=== PATIENT | male | born 1945 | race African-American/Black ===

== ENCOUNTER 2017-11-17 06:21 | Day surgery (SDC) | payer MEDICARE ==
[~2017-11-17 06:21] MED LIST: BUPIVACAINE HCL 0.75% INJ/PF (7.5 MG/1 ML) 10 ML SDV OD PRN; KETOROLAC TROMETHAMINE 0.45% 4 DROP/0.4 ML DROPERETTE OD PRN; LIDOCAINE 4% INJ/PF (40 MG/ML) 5 ML AMPUL OD PRN
[2017-11-17] MEDS ORDERED: MIDAZOLAM 2 MG/2 ML INJ ONE (06:31)
[2017-11-17] MEDS ORDERED: FENTANYL CITRATE INJ/PF 100 MCG/2 ML AMPUL ONE (06:31)
[2017-11-17] MEDS: TROPICAMIDE 1% OPH SOLN 3 ML OD PRN ×3 (06:49→07:10)
[2017-11-17] MEDS: CYCLOPENTOLATE 0.2%/PHENYLEPHRINE 1% OPH SOLN 2 ML OD PRN ×3 (06:49→07:10)
[2017-11-17] MEDS: BESIFLOXACIN HCL 0.6% OPH SUSP 5 ML BOTTLE OD PRN ×4 (06:50→07:58)
[2017-11-17] MEDS: TETRACAINE HCL 0.5% OPH SOLN 0.6 ML DROPERETTE OD PRN ×2 (06:51→07:25)
[2017-11-17] MEDS: LIDOCAINE 1% INJ-PF (10 MG/ML) 30 ML SDV ONE ×2 (07:46)
[2017-11-17] MEDS: CHONDR SU A NA/HYALUR INTRAOC KIT (SURGICARE) ONE ×2 (07:46)
[2017-11-17] MEDS: EPINEPHRINE INJ/PF 1 MG/1 ML AMPULE ONE ×2 (07:46)
--- NOTE | 2017-11-17 08:10 | [facility] DISCHARGE SUMMARY E ---
[facility] Discharge Summary NAME: MEHRAN MUSE AGE: 72Y ADMITTED: 11/17/2017 DISCHARGED: FINAL DIAGNOSIS: Cataract, right eye. HOSPITAL COURSE: The patient is an 72-year-old gentleman who underwent uneventful cataract extraction with intraocular lens implant right eye on 11/17/2017. He will be discharged to home. He is instructed to resume preoperative medications, to take Tylenol as needed for discomfort, to keep his eye shielded, to use Besivance, Durezol, and Ilevro at 3:00 p.m. and 8:00 p.m., and to follow up in my office in 1 day. DICTATING PHYSICIAN: RASHAWN SALCEDO M.D. [id number] [facility]#: [id number] ID: [id number] JOB#: [id number] ACCT: [id number] cc:RASHAWN SALCEDO M.D. >
--- NOTE | 2017-11-17 08:11 | [facility] OPERATIVE REPORT E ---
[facility] Operative Report NAME: MEHRAN MUSE AGE: 72Y DATE OF SURGERY: 11/17/2017 ROOM: PREOPERATIVE DIAGNOSIS: Cataract, right eye. POSTOPERATIVE DIAGNOSIS: Cataract, right eye. PROCEDURE PERFORMED: Phacoemulsification with posterior chamber intraocular lens, right eye. SURGEON: RASHAWN SALCEDO M.D. ANESTHESIA: Topical with MAC. INDICATIONS FOR SURGERY: Difficulty reading road signs and small print. Best corrected visual acuity 20/60. PROCEDURE: The patient was brought to the Operating Room and placed on the operative table. Following tetracaine drops, topical anesthesia was administered. This consisted of instrument wipe pledgets soaked in a solution of 4% Xylocaine mixed with 0.75% Marcaine in a 1:2 ratio. A 2 x 1 cm pledget was placed in the superior fornix. A 1 x 1 cm pledget was placed in the inferior fornix. The eye was patched shut for 5 minutes. The patch was removed. The eye was sterilely prepped and draped in the usual manner. Lid speculum was placed in the eye. The pledgets were removed. 4-0 black silk sutures were placed around the superior and the inferior rectus muscles to be used as traction. A conjunctival peritomy was made at the 10 o'clock position. Hemostasis was obtained with bipolar cautery. A posterior limbal groove was created using a crescent knife and dissected anteriorly towards the cornea. A sharp point blade was used to create a paracentesis site at the 2 o'clock position. A 2.4 mm keratome was used to enter the anterior chamber through the groove. Viscoelastic was injected into the anterior chamber. An anterior capsulotomy was performed using Utrata forceps in a capsulorrhexis fashion. Hydrodissection and hydrodelineation were performed. Phacoemulsification was performed in [id number] technique. A total of 47 seconds phaco time was used. Following this, the I/A unit was used to remove residual cortex. Viscoelastic was injected into the capsular bag. Intraocular lens model SN60WF, 20.0 diopters, serial number [id number] was placed in the capsular bag. The I/A unit was used to remove residual viscoelastic. The wound was seen to be watertight under high and low pressure, and no sutures were placed. The intraocular lens was well centered. The pressure was adjusted in the eye to normal pressure. The 4-0 black silk sutures and lid speculum were removed. The eye was shielded after Besivance drops were placed. The patient tolerated the procedure well and was sent to the recovery room in good condition. DICTATING PHYSICIAN: RASHAWN SALCEDO M.D. [id number] PHY#: [id number] ID: [id number] JOB#: [id number] ACCT: [id number] cc:RASHAWN SALCEDO M.D. >
== END 2017-11-17 08:40 | disposition home or self-care (01) ==
LOC: SC 06:21
PROVIDERS: ATTEND Ophthalmology
DX: H25.813 Combined forms of age-related cataract, bilateral (principal); I10 Essential (primary) hypertension; M10.9 Gout, unspecified; Z87.891 Personal history of nicotine dependence; Z79.899 Other long term (current) drug therapy
CPT/HCPCS: 66984; V2632; J2250; J3490 ×4; A9270; J0171; J3010; 142

== ENCOUNTER 2017-12-15 09:30 | Day surgery (SDC) | payer MEDICARE ==
[~2017-12-15 09:30] MED LIST changes: -BUPIVACAINE HCL 0.75% INJ/PF (7.5 MG/1 ML) 10 ML SDV OD PRN; +BUPIVACAINE HCL 0.75% INJ/PF (7.5 MG/1 ML) 10 ML SDV OS PRN; +CHONDR SU A NA/HYALUR INTRAOC KIT (SURGICARE) ONE; +EPINEPHRINE INJ/PF 1 MG/1 ML AMPULE ONE; -KETOROLAC TROMETHAMINE 0.45% 4 DROP/0.4 ML DROPERETTE OD PRN; +KETOROLAC TROMETHAMINE 0.45% 4 DROP/0.4 ML DROPERETTE OS PRN; -LIDOCAINE 4% INJ/PF (40 MG/ML) 5 ML AMPUL OD PRN; +LIDOCAINE 4% INJ/PF (40 MG/ML) 5 ML AMPUL OS PRN
[2017-12-15] MEDS: CYCLOPENTOLATE 0.2%/PHENYLEPHRINE 1% OPH SOLN 2 ML OS PRN ×3 (10:30→10:54)
[2017-12-15] MEDS: TROPICAMIDE 1% OPH SOLN 3 ML OS PRN ×3 (10:30→10:54)
[2017-12-15] MEDS: BESIFLOXACIN HCL 0.6% OPH SUSP 5 ML BOTTLE OS PRN ×4 (10:31→11:45)
[2017-12-15] MEDS: TETRACAINE HCL 0.5% OPH SOLN 0.6 ML DROPERETTE OS PRN ×2 (10:32→11:05)
[2017-12-15] MEDS ORDERED: FENTANYL CITRATE INJ/PF 100 MCG/2 ML AMPUL ONE (10:51)
[2017-12-15] MEDS ORDERED: MIDAZOLAM 2 MG/2 ML INJ ONE (10:51)
--- NOTE | 2017-12-15 12:00 | [facility] OPERATIVE REPORT E ---
[facility] Operative Report NAME: MEHRAN MUSE AGE: 72Y DATE OF SURGERY: 12/15/2017 ROOM: PREOPERATIVE DIAGNOSIS: Cataract, left eye. POSTOPERATIVE DIAGNOSIS: Cataract, left eye. PROCEDURE PERFORMED: Phacoemulsification with posterior chamber intraocular lens, left eye. SURGEON: RASHAWN SALCEOD M.D. ANESTHESIA: Topical with MAC. INDICATIONS FOR SURGERY: Difficulty driving. BEST CORRECTED VISUAL ACUITY: 20/50. DESCRIPTION OF PROCEDURE: The patient was brought to the operating room and placed on the operative table. Following tetracaine drops, topical anesthesia was administered. This consisted of instrument wipe pledgets soaked in a solution of 4% Xylocaine mixed with 0.75% Marcaine in a 1:2 ratio. A 2 x 1 cm pledget was placed in the superior fornix. A 1 x 1 cm pledget was placed in the inferior fornix. The eye was patched shut for 5 minutes. The patch was removed. The eye was sterilely prepped and draped in the usual manner. Lid speculum was placed in the eye. The pledgets were removed, 4-0 black silk sutures were placed around the superior and the inferior rectus muscles to be used as traction. A conjunctival peritomy was made at the 10 o'clock position. Hemostasis was obtained with bipolar cautery. A posterior limbal groove was created using a crescent knife and dissected anteriorly towards the cornea. A sharp point blade was used to create a paracentesis site at the 2 o'clock position. A 2.4 mm keratome was used to enter the anterior chamber through the groove. Viscoelastic was injected into the anterior chamber. An anterior capsulotomy was performed using Utrata forceps in a capsulorrhexis fashion. Hydrodissection and hydrodelineation were performed. Phacoemulsification was performed in [id number] technique. Total phaco time, 6.74 CDE. Following this, the I/A unit was used to remove residual cortex. Viscoelastic was injected into the capsular bag. Intraocular lens Model SN60WF, 20.0 diopters, serial number [id number] was placed in the capsular bag. The I/A unit was used to remove residual viscoelastic. The wound was seen to be watertight under high and low pressure, and no sutures were placed. The intraocular lens was well centered. The pressure was adjusted in the eye to normal pressure. The 4-0 black silk sutures and lid speculum were removed. The eye was shielded after Besivance drops were placed. The patient tolerated the procedure well and was sent to the recovery room in good condition. DICTATING PHYSICIAN: RASHAWN SALCEDO M.D. [id number] PHY#: [id number] ID: [id number] JOB#: [id number] ACCT: [id number] cc:RASHAWN SALCEDO M.D. >
--- NOTE | 2017-12-15 12:00 | [facility]ARE DISCHARGE SUMMARY E ---
[facility] Discharge Summary NAME: MEHRAN MUSE AGE: 72Y ADMITTED: 12/15/2017 DISCHARGED: 12/15/2017 HOSPITAL COURSE: The patient is a 72-year-old gentleman who underwent uneventful cataract extraction with intraocular lens implant, left eye, on 12/15/2017. He will be discharged to home. He was instructed to resume preoperative medications, to take Tylenol as needed for discomfort, to keep his eye shielded, to use Prolensa, Durezol, and Vigamox at 3:00 p.m. and 8:00 p.m., and to follow up in my office in 1 day. DICTATING PHYSICIAN: RASHAWN SALCEDO M.D. [id number] PHY#: [id number] ID: [id number] JOB#: [id number] ACCT: [id number] cc:RASHAWN SALCEDO M.D. >
[2017-12-15] MEDS ORDERED: LIDOCAINE 1% INJ-PF (10 MG/ML) 30 ML SDV ONE (12:17)
--- NOTE | 2017-12-15 22:14 | EKG REPORT ---
SEVERITY:- ABNORMAL ECG - SINUS RHYTHM VENTRICULAR BIGEMINY FIRST DEGREE AV BLOCK LEFT AXIS DEVIATION : Confirmed by: Hilary Mills 15-Dec-2017 22:14:17
== END 2017-12-15 11:46 | disposition home or self-care (01) ==
LOC: SC 09:30
PROVIDERS: ATTEND Ophthalmology
DX: H25.812 Combined forms of age-related cataract, left eye (principal); Z96.1 Presence of intraocular lens; I10 Essential (primary) hypertension; M10.9 Gout, unspecified; I49.9 Cardiac arrhythmia, unspecified; Z79.899 Other long term (current) drug therapy
CPT/HCPCS: 66984; 93005; 93010; V2632; J2250; J3490 ×4; A9270; J0171; J3010; 142

== ENCOUNTER 2019-01-18 02:57 | Emergency (ER) | payer MEDICARE ==
[2019-01-18] MEDS ORDERED: NORMAL SALINE 1000 ML 1,000 ML IV ONE (03:21)
[2019-01-18] MEDS ORDERED: ACETAMINOPHEN 325 MG TABLET PO ONE (03:46)
--- NOTE | 2019-01-18 03:46 | ER Document Report ---
ED GI/ - General Chief Complaint: Nausea/Vomiting Stated Complaint: VOMITING Time Seen by Provider: 01/18/19 03:11 Primary Care Provider: YUVAL PENNINGTON MD [Primary Care Provider] - Follow up as needed Mode of Arrival: Ambulatory Information source: Patient Notes: Patient is a 73-year-old male presented to the emergency department chief complaint of nausea, sweats, decreased appetite and abdominal discomfort. He reports he was diagnosed with urinary tract infection yesterday. He states he was told to come to the emergency department if he worsens in any way. Patient is currently taking Cipro. Patient denies any known fevers. He denies any vomiting. He does report some diarrhea. TRAVEL OUTSIDE OF THE [place] IN LAST 30 DAYS: No - Related Data Allergies/Adverse Reactions: No Known Allergies Allergy (Unverified 11/10/17 14:14) Past Medical History - General Information source: Patient - Social History Smoking Status: Never Smoker Frequency of alcohol use: None Drug Abuse: None Family History: Reviewed & Not Pertinent - Past Medical History Cardiac Medical History: Reports: Hx Hypertension Denies: Hx Heart Attack Pulmonary Medical History: Denies: Hx Asthma Neurological Medical History: Denies: Hx Cerebrovascular Accident, Hx Seizures GI Medical History: Reports: Hx Hiatal Hernia - HERNIA REPAIR. Denies: Hx Hepatitis, Hx Ulcer Infectious Medical History: Denies: Hx Hepatitis Past Surgical History: Denies: Hx Open Heart Surgery, Hx Pacemaker Review of Systems - Review of Systems Constitutional: Chills EENT: No symptoms reported Cardiovascular: No symptoms reported Respiratory: No symptoms reported Gastrointestinal: Abdominal pain, Diarrhea, Nausea Genitourinary: No symptoms reported Male Genitourinary: No symptoms reported Musculoskeletal: No symptoms reported Skin: No symptoms reported Hematologic/Lymphatic: No symptoms reported Neurological/Psychological: No symptoms reported Physical Exam - Vital signs Vitals: Temp Pulse Resp BP Pulse Ox 98.9 F 98 22 H 133/71 H 99 01/18/19 02:58 01/18/19 02:58 01/18/19 02:58 01/18/19 02:58 01/18/19 02:58 - Notes Notes: PHYSICAL EXAMINATION: GENERAL: Well-appearing, well-nourished and in no acute distress. HEAD: Atraumatic, normocephalic. EYES: Pupils equal round and reactive to light, extraocular movements intact, sclera anicteric, conjunctiva are normal. ENT: Nares patent, oropharynx clear without exudates. Moist mucous membranes. NECK: Normal range of motion, supple without lymphadenopathy LUNGS: Breath sounds clear to auscultation bilaterally and equal. No wheezes rales or rhonchi. HEART: Regular rate and rhythm without murmurs ABDOMEN: Soft, nontender, nondistended abdomen. No guarding, no rebound. No masses appreciated. Musculoskeletal: Normal range of motion, no pitting or edema. No cyanosis. NEUROLOGICAL: Cranial nerves grossly intact. Normal speech, normal gait. Normal sensory, motor exams PSYCH: Normal mood, normal affect. SKIN: Warm, Dry, normal turgor, no rashes or lesions noted. Course - Re-evaluation Re-evalutation: Abdomen/Pelvis CT 01/18/19 05:29 IMPRESSION: Minimal fullness of the left renal collecting system. No clear obstructing lesion. Abdomen/Pelvis CT 01/18/19 05:29 IMPRESSION: Minimal fullness of the left renal collecting system. No clear obstructing lesion. Laboratory 01/18/19 01/18/19 01/18/19 02:57 02:57 03:30 WBC 10.7 H RBC 5.11 Hgb 11.8 L Hct 36.4 L MCV 71 L MCH 23.2 L MCHC 32.5 RDW 17.0 H Plt Count 99 L Lymph % (Auto) 7.2 L Tama % (Auto) 8.9 Eos % (Auto) 0.0 Baso % (Auto) 0.3 Absolute Neuts (auto) 8.9 H Absolute Lymphs (auto) 0.8 Absolute Monos (auto) 1.0 Absolute Eos (auto) 0.0 Absolute Basos (auto) 0.0 Seg Neutrophils % 83.6 H Hypersegmented Neuts Cancelled Smudge Cells Cancelled Toxic Granulation Cancelled Toxic Vacuolation Cancelled Dohle Bodies Cancelled Ralph Rods Cancelled WBC Morphology Comment Cancelled Clumped Platelets Cancelled Large Platelets Cancelled Giant Platelets Cancelled Platelet Comment Cancelled Polychromasia Cancelled Hypochromasia Cancelled Poikilocytosis Cancelled Basophilic Stippling Cancelled Anisocytosis Cancelled Microcytosis Cancelled Macrocytosis Cancelled Spherocytes Cancelled Pappenheimer Bodies Cancelled Sickle Cells Cancelled Target Cells Cancelled Tear Drop Cells Cancelled Ovalocytes Cancelled Stomatocytes Cancelled Helmet Cells Cancelled [place] Bodies Cancelled Maikel Cells Cancelled Acanthocytes (Spur) Cancelled Rouleaux Cancelled Schistocytes Cancelled RBC Morph Comment Cancelled Sodium 133.0 L Potassium 3.3 L Chloride 99 Carbon Dioxide 23 Anion Gap 11 BUN 45 H Creatinine 1.66 H Est GFR ( Amer) 49 L Est GFR (MDRD) Non-Af 41 L Glucose 137 H Calcium 9.7 Total Bilirubin 1.1 Direct Bilirubin 0.6 H Neonat Total Bilirubin Not Reportable Neonat Direct Bilirubin Not Reportable Neonat Indirect Bili Not Reportable AST 85 H ALT 65 Alkaline Phosphatase 93 Total Protein 6.4 Albumin 3.5 Lipase 203.5 Urine Color YELLOW Urine Appearance CLOUDY Urine pH 5.0 Ur Specific [place] 1.015 Urine Protein 100 H Urine Glucose (UA) NEGATIVE Urine Ketones NEGATIVE Urine Blood LARGE H Urine Nitrite POSITIVE H Urine Bilirubin NEGATIVE Urine Urobilinogen NEGATIVE Ur Leukocyte Esterase LARGE H Urine WBC (Auto) >182 Urine RBC (Auto) 7 Urine Bacteria (Auto) TRACE Urine WBC Clumps MOD Squamous Epi Cells Auto 1 Amorphous Sediment Auto TRACE Urine Mucus (Auto) RARE Urine Ascorbic Acid NEGATIVE Patient appears well non-toxic. Patient denies any abdominal pain while in the emergency department. Urinalysis consistent with urinary tract infection. He was given 1g ceftriaxone and will be discharged home with strict ED return precautions. - Vital Signs Vital signs: Temp Pulse Resp BP Pulse Ox 99.1 F 85 15 135/83 H 94 01/18/19 07:06 01/18/19 07:06 01/18/19 07:06 01/18/19 07:06 01/18/19 07:06 - Laboratory Result Diagrams: 01/18/19 02:57 01/18/19 02:57 Laboratory results interpreted by me: 01/18/19 01/18/19 01/18/19 02:57 02:57 03:30 WBC 10.7 H Hgb 11.8 L Hct 36.4 L MCV 71 L MCH 23.2 L RDW 17.0 H Plt Count 99 L Lymph % (Auto) 7.2 L Absolute Neuts (auto) 8.9 H Seg Neutrophils % 83.6 H Sodium 133.0 L Potassium 3.3 L BUN 45 H Creatinine 1.66 H Est GFR ( Amer) 49 L Est GFR (MDRD) Non-Af 41 L Glucose 137 H Direct Bilirubin 0.6 H AST 85 H Urine Protein 100 H Urine Blood LARGE H Urine Nitrite POSITIVE H Ur Leukocyte Esterase LARGE H Discharge - Discharge Clinical Impression: Urinary tract infection Qualifiers: Urinary tract infection type: site unspecified Hematuria presence: with hematuria Qualified Code(s): N39.0 - Urinary tract infection, site not specified Condition: Stable Disposition: HOME, SELF-CARE Additional Instructions: Your urine shows findings consistent with a urinary tract infection. Please take all the antibiotics that were prescribed by the urgent care as directed even if your symptoms have improved. Take ibuprofen 600 mg every 6 hours. Use the narcotic pain medication for severe pain only. Please follow-up with your primary care physician as needed. Return to emergency room if you develop fever >101F, persistent vomiting, become lethargic, have severe pain in your sides, or any other symptoms that are concerning to you. Prescriptions: Hydrocodone Bit/Acetaminophen [Hydrocodon-Acetaminophen 5-325] 1 each PO Q4H #10 tablet Ondansetron [Zofran Odt 4 mg Tablet] 1 - 2 tab PO Q4H PRN #15 tab.rapdis PRN Reason: For Nausea/Vomiting Referrals: YUVAL PENNINGTON MD [Primary Care Provider] - Follow up as needed
[2019-01-18 03:52] LABS: AMORPHOUS SEDIMENT,URINE TRACE /HPF; APPEARANCE,URINE CLOUDY; BILIRUBIN,URINE NEGATIVE (NEGATIVE); COLOR,URINE YELLOW; GLUCOSE, URINE NEGATIVE (NEGATIVE); KETONES,URINE NEGATIVE (NEGATIVE); LEUKOCYTE ESTERASE,URINE LARGE (NEGATIVE); NITRITE,URINE POSITIVE (NEGATIVE); PROTEIN,URINE 100 mg/dL (NEGATIVE); URINE SPECIFIC GRAVITY 1.015; UROBILINOGEN,URINE NEGATIVE mg/dL (<2.0)
[2019-01-18 03:56] LABS: ABSOLUTE LYMPHOCYTES (AUTO) 0.8 10^3/uL (0.5-4.7); ABSOLUTE NEUT (AUTO) 8.9 10^3/uL (1.7-8.2); BASOPHILS % (AUTO) 0.3 % (0-2); HEMATOCRIT 36.4 % (37.9-51.0); HEMOGLOBIN 11.8 g/dL (13.5-17.0); LYMPHOCYTES % (AUTO) 7.2 % (13-45); MEAN CORPUSCULAR HEMOGLOBIN 23.2 pg (27.0-33.4); MEAN CORPUSCULAR HGB CONC 32.5 g/dL (32.0-36.0); MEAN CORPUSCULAR VOLUME 71 fl (80-97); MONOCYTES % (AUTO) 8.9 % (3-13); RED BLOOD COUNT 5.11 10^6/uL (4.35-5.55); SEGMENTED NEUTROPHILS % (AUTO) 83.6 % (42-78); TOTAL CELLS COUNTED % (AUTO) 100 %; WHITE BLOOD COUNT 10.7 10^3/uL (4.0-10.5)
[2019-01-18 04:08] LABS: ALBUMIN 3.5 g/dL (3.5-5.0); ALKALINE PHOSPHATASE 93 U/L (38-126); ANION GAP 11 (5-19); ASPARTATE AMINO TRANSFERASE 85 U/L (17-59); BILIRUBIN,DIRECT 0.6 mg/dL (0.0-0.4); BILIRUBIN,TOTAL 1.1 mg/dL (0.2-1.3); BLOOD UREA NITROGEN 45 mg/dL (7-20); CALCIUM 9.7 mg/dL (8.4-10.2); CARBON DIOXIDE 23 mmol/L (22-30); CHLORIDE 99 mmol/L (98-107); GLUCOSE 137 mg/dL (75-110); POTASSIUM 3.3 mmol/L (3.6-5.0); TOTAL PROTEIN 6.4 g/dL (6.3-8.2)
[2019-01-18 04:11] LABS: PLATELET COUNT 99 10^3/uL (150-450)
--- NOTE | 2019-01-18 06:14 | RADIOLOGY REPORT (SQ) ---
CLINICAL HISTORY: UTI, bilateral flank pain COMPARISON: None. TECHNIQUE: CT ABDOMEN PELVIS WITHOUT IV CONTRAST on 01/18/2019 5:29 AM CDT This exam was performed according to our departmental dose-optimization program, which includes automated exposure control, adjustment of the mA and/or kV according to patient size and/or use of iterative reconstruction technique. FINDINGS: Lower lungs are clear. Abdomen: There are multiple vague low-density lesions in the anterior liver measuring up to 2.1 cm. These likely represent cysts. There is no biliary dilatation. The pancreas and spleen are normal in appearance. There is minimal left renal collecting system fullness. Both kidneys are mildly atrophic. Adrenal glands are normal. Abdominal aorta is normal in course and caliber without aneurysm. There is no free air. There is no retroperitoneal adenopathy. Pelvis: There is no bowel obstruction. Urinary bladder is unremarkable. There is no free fluid. There is a tiny fat-containing right inguinal hernia. Appendix is normal. Skeleton: There are no acute osseous findings. No suspicious bony lesions. IMPRESSION: Minimal fullness of the left renal collecting system. No clear obstructing lesion.
[2019-01-18] MEDS ORDERED: CEFTRIAXONE 1 GM/D5W RTU 1 GM/50 ML RTUPB IV ONE (06:42)
[2019-01-18] MEDS ORDERED: ONDANSETRON ODT 4 MG TAB (6 TAB/ER DISP) PO PRN (06:55)
[2019-01-18] MEDS ORDERED: HYDROCODONE/ACETAMINOPHEN 5-325 MG (6 TAB/ER DISP) PO PRN (06:55)
[2019-01-18 07:06] VITALS: BP 135/83
== END 2019-01-18 07:30 | disposition home or self-care (01) ==
LOC: ER 02:57
DX: N39.0 Urinary tract infection, site not specified (principal); R11.2 Nausea with vomiting, unspecified; R10.9 Unspecified abdominal pain; I10 Essential (primary) hypertension
CPT/HCPCS: 99283; 96361; 96365; 36415; 83690; 85025; 80053; 81001; 74176; A9270 ×3; J7030; J0696

== ENCOUNTER 2019-01-20 12:31 | Inpatient (IN) | payer MEDICARE ==
--- NOTE | 2019-01-20 12:36 | ER Document Report ---
ED Medical Screen (RME) - General Chief Complaint: Constipation Stated Complaint: CONSTIPATION Time Seen by Provider: 01/20/19 12:34 Primary Care Provider: YUVAL PENNINGTON MD [Primary Care Provider] - Follow up as needed Mode of Arrival: Ambulatory Information source: Patient Notes: 73-year-old male presents to ED because he has not had a bowel movement in 3 day s. He states he cannot go another night with this pain. He is alert oriented respirations regular and unlabored walks with a limp. He states he has not had a bowel movement at all for 3 days. He states he got 0 tolerance at this point. He needs some help. I have greeted and performed a rapid initial assessment of this patient. A comprehensive ED assessment and evaluation of the patient, analysis of test results and completion of medical decision making process will be conducted by an additional ED providers. TRAVEL OUTSIDE OF THE [place] IN LAST 30 DAYS: No - Related Data Allergies/Adverse Reactions: No Known Allergies Allergy (Verified 01/20/19 12:33) Past Medical History - Past Medical History Cardiac Medical History: Reports: Hx Hypertension GI Medical History: Reports: Hx Hiatal Hernia - HERNIA REPAIR Infectious Medical History: Denies: Hx Hepatitis Past Surgical History: Denies: Hx Open Heart Surgery, Hx Pacemaker Doctor's Discharge - Discharge Referrals: YUVAL PENNINGTON MD [Primary Care Provider] - Follow up as needed
--- NOTE | 2019-01-20 13:20 | RADIOLOGY REPORT (SQ) ---
EXAM DESCRIPTION: ACUTE ABDOMEN SERIES COMPLETED DATE/TIME: 01/20/2019 1:05 pm REASON FOR STUDY: Abdominal pain no BM in 3 days COMPARISON: None. NUMBER OF VIEWS: Three views. TECHNIQUE: Frontal chest, supine abdomen and upright/decubitus abdomen radiographic images acquired. LIMITATIONS: None. FINDINGS: CHEST: Lungs clear of infiltrates. FREE AIR: None. No abnormal gas collections. BOWEL GAS PATTERN: Nonobstructive pattern. There does not appear to be a large amount retained stool . CALCIFICATIONS: No suspicious calcifications. HARDWARE: None in the abdomen. SOFT TISSUES: No gross mass or suggestion of organomegaly. BONES: No acute fracture. No worrisome bone lesions. OTHER: No other significant finding. IMPRESSION: NO RADIOGRAPHIC EVIDENCE FOR ACUTE ABDOMINAL DISEASE. TECHNICAL DOCUMENTATION: JOB ID: [id number] [employer]- All Rights Reserved Reading location - IP/workstation name: [email or web address]
[2019-01-20 13:48] LABS: HEMATOCRIT 34.2 % (37.9-51.0); HEMOGLOBIN 11.4 g/dL (13.5-17.0); MEAN CORPUSCULAR HGB CONC 33.3 g/dL (32.0-36.0); MEAN CORPUSCULAR VOLUME 69 fl (80-97); PLATELET COUNT 131 10^3/uL (150-450); RED BLOOD COUNT 4.96 10^6/uL (4.35-5.55); RED CELL DISTRIBUTION WIDTH 16.8 % (11.5-14.0); WHITE BLOOD COUNT 9.2 10^3/uL (4.0-10.5)
[2019-01-20 13:50] LABS: APPEARANCE,URINE SLIGHTLY-CLOUDY; BILIRUBIN,URINE NEGATIVE (NEGATIVE); COLOR,URINE YELLOW; GLUCOSE, URINE NEGATIVE (NEGATIVE); KETONES,URINE NEGATIVE (NEGATIVE); LEUKOCYTE ESTERASE,URINE TRACE (NEGATIVE); NITRITE,URINE NEGATIVE (NEGATIVE); PROTEIN,URINE 30 mg/dL (NEGATIVE); URINE SPECIFIC GRAVITY 1.013; UROBILINOGEN,URINE NEGATIVE mg/dL (<2.0)
--- NOTE | 2019-01-20 13:50 | ER Document Report ---
ED GI/ - General Chief Complaint: Constipation Stated Complaint: CONSTIPATION Time Seen by Provider: 01/20/19 12:34 Mode of Arrival: Ambulatory Information source: Patient, [facility] Records Notes: This 73-year-old male patient comes emergency room complaining of abdominal fullness for the last few days. States his last bowel movement was 3 days ago. He tried taking castor oil and a colon cleanser. Patient was seen here 2 days ago on 01/18/2019 with complaints of nausea, sweats, decreased appetite, and abdominal pain. He was found to have a nitrite positive urine with too numerous to count WBCs. At that time the chart indicated he was seen the day before and diagnosed with urinary tract infection and started on Cipro. He has continued the Cipro. Urine culture was not obtained on the visit 2 days ago. TRAVEL OUTSIDE OF THE [place] IN LAST 30 DAYS: No - Related Data Allergies/Adverse Reactions: No Known Allergies Allergy (Verified 01/20/19 12:33) Past Medical History - General Information source: Patient - Social History Smoking Status: Former Smoker - Patient quit smoking in 1971 Cigarette use (# per day): No Chew tobacco use (# tins/day): No Smoking Education Provided: No Frequency of alcohol use: None Drug Abuse: None Occupation: Retired Family History: Reviewed & Not Pertinent Patient has suicidal ideation: No Patient has homicidal ideation: No - Past Medical History Cardiac Medical History: Reports: Hx Hypertension GI Medical History: Reports: Hx Hiatal Hernia - HERNIA REPAIR Musculoskeletal Medical History: Reports Hx Gout Past Surgical History: Reports: Hx Herniorrhaphy - Umbilical hernia repair Review of Systems - Review of Systems Constitutional: No symptoms reported EENT: No symptoms reported Cardiovascular: No symptoms reported Respiratory: No symptoms reported Gastrointestinal: See HPI Genitourinary: No symptoms reported Musculoskeletal: No symptoms reported Skin: No symptoms reported Hematologic/Lymphatic: No symptoms reported Neurological/Psychological: No symptoms reported Physical Exam - Vital signs Vitals: Temp Pulse Resp BP Pulse Ox 98 F 66 26 H 133/77 H 95 01/20/19 12:36 01/20/19 12:36 01/20/19 12:36 01/20/19 12:36 01/20/19 12:36 Interpretation: Normal - Abdominal Distension: Distended Bowel sounds: Normal Tenderness: Other - The patient's upper abdomen is hyperresonant to percuss corresponding to the dilated loops of bowel seen on x-ray. Percussion in the lower abdomen is dull on either side. There is minimal discomfort to palpate the abdomen. - Back Back: Normal - Extremities General upper extremity: Normal inspection General lower extremity: Normal inspection - Neurological Neuro grossly intact: Yes - Psychological Associated symptoms: Normal affect, Normal mood - Skin Skin Temperature: Warm Skin Moisture: Dry Skin Color: Normal Course - Vital Signs Vital signs: Temp Pulse Resp BP Pulse Ox 98.1 F 69 17 132/70 H 98 01/20/19 17:37 01/20/19 17:37 01/20/19 17:37 01/20/19 17:37 01/20/19 17:37 - Laboratory Result Diagrams: 01/20/19 13:35 01/20/19 13:35 Laboratory results interpreted by me: 01/20/19 01/20/19 01/20/19 13:17 13:35 13:35 Hgb 11.4 L Hct 34.2 L MCV 69 L MCH 23.0 L RDW 16.8 H Plt Count 131 L PT Sodium 128.1 L Chloride 94 L Carbon Dioxide 18 L BUN 97 H Creatinine 6.15 H Est GFR ( Amer) 11 L Est GFR (MDRD) Non-Af 9 L Glucose 115 H Phosphorus Direct Bilirubin 0.7 H Amylase Lipase Urine Protein 30 H Urine Blood MODERATE H Ur Leukocyte Esterase TRACE H 01/20/19 01/20/19 13:35 13:35 Hgb Hct MCV MCH RDW Plt Count PT 16.4 H Sodium Chloride Carbon Dioxide BUN Creatinine Est GFR ( Amer) Est GFR (MDRD) Non-Af Glucose Phosphorus 5.6 H Direct Bilirubin Amylase 288 H Lipase 888.4 H Urine Protein Urine Blood Ur Leukocyte Esterase - Diagnostic Test Radiology reviewed: Image reviewed, Reports reviewed - Acute abdominal series is read as nonobstructive pattern. No acute abdominal disease process. I do note some dilated loops of bowel and upper abdomen which do correspond to the hyperresonant areas found on physical exam. - Consults Dr. Gary Time consulted: 16:38 Consulted provider: will see as inpatient Critical Care Note - Critical Care Note Total time excluding time spent on procedures (mins): 35 Discharge - Discharge Clinical Impression: Obstructive uropathy Acute renal failure Qualifiers: Acute renal failure type: unspecified Qualified Code(s): N17.9 - Acute kidney failure, unspecified Urinary tract infection Qualifiers: Urinary tract infection type: site unspecified Hematuria presence: without hematuria Qualified Code(s): N39.0 - Urinary tract infection, site not specified Condition: Fair Disposition: ADMITTED INPATIENT Admitting Provider: Abdirahman Unit Admitted: Telemetry
[2019-01-20] MEDS ORDERED: NORMAL SALINE 1000 ML 1,000 ML IV ONE ×2 (14:06→16:02)
[2019-01-20 14:08] LABS: ABSOLUTE LYMPHOCYTES# (MANUAL) 1.7 10^3/uL (0.5-4.7); ALBUMIN 3.5 g/dL (3.5-5.0); ALKALINE PHOSPHATASE 86 U/L (38-126); ANION GAP 16 (5-19); ASPARTATE AMINO TRANSFERASE 58 U/L (17-59); BASOPHILS % (MANUAL) 0 % (0-2); BILIRUBIN,DIRECT 0.7 mg/dL (0.0-0.4); BLOOD UREA NITROGEN 97 mg/dL (7-20); CALCIUM 9.4 mg/dL (8.4-10.2); CARBON DIOXIDE 18 mmol/L (22-30); CHLORIDE 94 mmol/L (98-107); EOSINOPHILS % (MANUAL) 0 % (0-6); GLUCOSE 115 mg/dL (75-110); LYMPHOCYTES % (MANUAL) 18 % (13-45); MONOCYTES % (MANUAL) 11 % (3-13); POTASSIUM 3.7 mmol/L (3.6-5.0); SEGMENTED NEUTROPHILS % (MAN) 71 % (42-78); TOTAL CELLS COUNTED 100; TOTAL PROTEIN 6.3 g/dL (6.3-8.2)
[2019-01-20 14:12] LABS: ANISOCYTOSIS 2+; HYPOCHROMASIA SLIGHT; OVALOCYTES 1+; PLATELET COMMENT DECREASED; POIKILOCYTOSIS 1+; SCHISTOCYTES SLIGHT; TARGET CELLS 1+
[2019-01-20] MEDS ORDERED: LIDOCAINE 2% URO-JET 5 ML KIT MM ONE (16:07)
--- NOTE | 2019-01-20 17:27 | PDOC H&P ---
History of Present Illness Admission Date/PCP: 01/20/19 16:52 YUVAL PENNINGTON MD History of Present Illness: MEHRAN MUSE is a 73 year old male he came initially to the emergency room on 01/18/2019 for evaluation of nausea vomiting, excessive sweating, decreased appetite, abdominal discomfort before this ER visit he was in the urgent care the day before for evaluation of urinary symptoms he was diagnosed with UTI, he was prescribed Cipro. He also complained of abdominal pain at the time in the emergency room he was evaluated the serum creatinine was 1.6, urinalysis was grossly abnormal with pyuria, positive leukocyte esterase, positive urine nitrite bacteriuria, he also had a CAT scan of the abdomen and pelvis without contrast, the CAT scan demonstrated multiple vague low-density lesions in the anterior liver measuring up to 2.1 cm, this likely represents cyst according to the report. The kidneys were mildly atrophic he was discharged home from the emergency room, he was also prescribed ibuprofen 600 mg p.o. every 6 hours for pain control. He return to the emergency room on 01/20/2019 with complaint of abdominal fullness for the last few days, constipation. He had blood work done in the ER on this visit that demonstrated, sodium 128, creatinine 6.15, grossly abnormal dipstick urinalysis with blood in the urine, positive leukocyte esterase, protein,, it was felt that patient probably have obstructive uropathy I was not convinced of the diagnosis of obstructive uropathy because the last CAT scan that was done did not show any hydronephrosis, it demonstrated atrophic kidneys and mild azotemia. I ordered a repeat CT scan of the abdomen and pelvis without contrast again there was no hydronephrosis or hydroureter to suggest obstructive uropathy, he had a Mathew catheter inserted in the emergency room. Clearly he has acute kidney injury Past Medical History Cardiac Medical History: Reports: Hypertension GI Medical History: Reports: Hiatal Hernia - HERNIA REPAIR Musculoskeltal Medical History: Reports: Gout Past Surgical History Past Surgical History: Reports: Herniorrhaphy - Umbilical hernia repair Denies: Pacemaker Social History Smoking Status: Former Smoker - Patient quit smoking in 1971 Family History Family History: Reviewed & Not Pertinent Parental Family History Reviewed: Yes Children Family History Reviewed: Yes Sibling(s) Family History Reviewed.: Yes Medication/Allergy Home Medications: Allopurinol [Zyloprim] 300 mg PO DAILY 11/10/17 Amlodipine Besylate 10 mg PO DAILY 11/10/17 Atenolol [Tenormin] 50 mg PO DAILY 11/10/17 Hydrochlorothiazide 25 mg PO QAM 11/10/17 Olmesartan Medoxomil 40 mg PO DAILY 01/20/19 Omeprazole 20 mg PO DAILY 01/20/19 Allergies/Adverse Reactions: No Known Allergies Allergy (Verified 01/20/19 12:33) Review of Systems Constitutional: PRESENT: fever(s), night sweats Eyes: ABSENT: visual disturbances Ears: ABSENT: hearing changes Nose, Mouth, and Throat: ABSENT: as per HPI, headache(s), mouth pain, sore throat, vertigo, other Respiratory: ABSENT: cough, hemoptysis Gastrointestinal: PRESENT: constipation Genitourinary: PRESENT: dysuria, nocturia Musculoskeletal: ABSENT: joint swelling Integumentary: ABSENT: rash, wounds Neurological: ABSENT: abnormal gait, abnormal speech, confusion, dizziness, focal weakness, syncope Psychiatric: ABSENT: anxiety, depression, homidical ideation, suicidal ideation Endocrine: ABSENT: cold intolerance, heat intolerance, menstrual abnormalities, polydipsia, polyuria Hematologic/Lymphatic: ABSENT: easy bleeding, easy bruising, lymphadenopathy Physical Exam Vital Signs: Temp Pulse Resp BP Pulse Ox 98 F 66 26 H 133/77 H 95 01/20/19 12:36 01/20/19 12:36 01/20/19 12:36 01/20/19 12:36 01/20/19 12:36 Intake & Output 01/19/19 01/20/19 01/21/19 06:59 06:59 06:59 Intake Total 2000 Output Total 975 Balance 1025 Weight 108.8 kg General appearance: PRESENT: no acute distress, well-developed, well-nourished Head exam: PRESENT: atraumatic, normocephalic Eye exam: PRESENT: conjunctiva pink, EOMI, PERRLA Ear exam: PRESENT: normal external ear exam Mouth exam: PRESENT: moist, tongue midline Neck exam: PRESENT: full ROM Respiratory exam: PRESENT: clear to auscultation [place] Cardiovascular exam: PRESENT: RRR, +S1, +S2 Pulses: PRESENT: normal dorsalis pedis pul, +2 pedal pulses bilateral Vascular exam: PRESENT: normal capillary refill GI/Abdominal exam: PRESENT: normal bowel sounds, soft Rectal exam: PRESENT: deferred, hemorrhoids, prostate enlargement, other - He has a large prostate smooth surface no nodule palpated, there is external he morrhoids Neurological exam: PRESENT: alert, awake, oriented to person, oriented to place, oriented to time, oriented to situation, CN II-XII grossly intact Psychiatric exam: PRESENT: appropriate affect, normal mood Skin exam: PRESENT: dry, intact, warm Results Laboratory Results: 01/20/19 13:35 01/20/19 13:35 01/20/19 01/20/19 01/20/19 13:17 13:35 13:35 WBC 9.2 RBC 4.96 Hgb 11.4 L Hct 34.2 L MCV 69 L MCH 23.0 L MCHC 33.3 RDW 16.8 H Plt Count 131 L Seg Neutrophils % Not Reportable Sodium 128.1 L Potassium 3.7 Chloride 94 L Carbon Dioxide 18 L Anion Gap 16 BUN 97 H Creatinine 6.15 H Est GFR ( Amer) 11 L Glucose 115 H Calcium 9.4 Total Bilirubin 1.0 AST 58 Alkaline Phosphatase 86 Total Protein 6.3 Albumin 3.5 Urine Color YELLOW Urine Appearance SLIGHTLY-CLOUDY Urine pH 5.0 Ur Specific [place] 1.013 Urine Protein 30 H Urine Glucose (UA) NEGATIVE Urine Ketones NEGATIVE Urine Blood MODERATE H Urine Nitrite NEGATIVE Ur Leukocyte Esterase TRACE H Urine WBC (Auto) 8 Urine RBC (Auto) 9 Impressions: Acute Abdomen Series 01/20/19 12:36 IMPRESSION: NO RADIOGRAPHIC EVIDENCE FOR ACUTE ABDOMINAL DISEASE. Assessment & Plan - Diagnosis (1) Acute kidney injury Is this a current diagnosis for this admission?: Yes Plan: The serum creatinine increased from 1.66 to 7.81 in the last 2 days suggesting acute kidney failure, this is most likely due to a completion of advanced including the use of ibuprofen, antibiotic, that could be a component of hemodynamic instability with mild ATN, patient will be vigorously hydrated with fluid, we will continue close monitoring kidney function (2) BPH (benign prostatic hyperplasia) Qualifiers: Lower urinary tract symptom presence: symptoms present Lower urinary tract symptom detail: urinary frequency Qualified Code(s): N40.1 - Benign prostatic hyperplasia with lower urinary tract symptoms; R35.0 - Frequency of micturition Is this a current diagnosis for this admission?: Yes Plan: He has an enlarged prostate on examination, start tamsulosin and finasteride (3) Urinary tract infection Qualifiers: Urinary tract infection type: site unspecified Hematuria presence: without hematuria Qualified Code(s): N39.0 - Urinary tract infection, site not specified Is this a current diagnosis for this admission?: Yes Plan: He has UTI on the basis of the urinalysis dipstick, urine culture obtained, no specific organism isolated yet, the risk for the UTI is most likely the BPH
[2019-01-20 17:41] LABS: INTERNATIONAL RATION (INR) 1.31; PARTIAL THROMBOPLASTIN TIME 33.9 SEC (23.5-35.8); PROTHROMBIN TIME 16.4 SEC (11.4-15.4)
[2019-01-20 17:56] LABS: PHOSPHORUS 5.6 mg/dL (2.5-4.5)
[2019-01-20 17:56] LABS: URINE AMPHETAMINES SCREEN NEGATIVE; URINE BARBITURATES SCREEN NEGATIVE; URINE BENZODIAZEPINES SCREEN NEGATIVE; URINE COCAINE SCREEN NEGATIVE; URINE MARIJUANA (THC) SCREEN NEGATIVE; URINE METHADONE SCREEN NEGATIVE; URINE PHENCYCLIDINE SCREEN NEGATIVE
[2019-01-20 18:57] LABS: CREATINE KINASE MB 9.04 ng/mL (<4.55)
[2019-01-20 19:00] LABS: TROPONIN I < 0.012 ng/mL
--- NOTE | 2019-01-20 19:20 | RADIOLOGY REPORT (SQ) ---
EXAM DESCRIPTION: CT ABDOMEN ORAL CONTRAST ONLY COMPLETED DATE/TIME: 01/20/2019 6:48 pm REASON FOR STUDY: obstructive uropathy COMPARISON: None. TECHNIQUE: CT scan of the abdomen performed without intravenous contrast and with oral contrast. Im ages reviewed with lung, soft tissue, and bone windows. Reconstructed coronal and sagittal MPR image s reviewed. All images stored on PACS. All CT scanners at this facility use dose modulation, iterative reconstruction, and/or weight based d osing when appropriate to reduce radiation dose to as low as reasonably achievable (ALARA). [facility]: Dose Right [facility]: CareDose [facility]: Dose Right [facility]: Teradose 4D [facility]: [employer] RADIATION DOSE: mGy. LIMITATIONS: None. FINDINGS: LOWER CHEST: There is opacification in the right base posteriorly. NONCONTRASTED LIVER, SPLEEN, ADRENALS: A couple small hepatic cysts are present. The spleen and adre nal glands are normal. PANCREAS: No masses. No peripancreatic inflammatory changes. GALLBLADDER: No identified stones by CT criteria. No inflammatory changes to suggest cholecystitis. RIGHT KIDNEY AND URETER: No suspicious masses. Assessment limited by lack of IV contrast. No signif icant calcifications. No hydronephrosis or hydroureter. LEFT KIDNEY AND URETER: No suspicious masses. Assessment limited by lack of IV contrast. No signifi cant calcifications. No hydronephrosis or hydroureter. AORTA AND RETROPERITONEUM: No aneurysm. No retroperitoneal masses or adenopathy. BOWEL AND PERITONEAL CAVITY: No obvious masses or inflammatory changes. No free fluid. APPENDIX: Not identified. PELVIS: A Mathew catheter is present in the bladder. No pelvic mass or fluid collection. Prostate g land is prominent. ABDOMINAL WALL: No abdominal wall hernias. BONES: No significant findings. OTHER: No other significant finding. IMPRESSION: No acute finding in the abdomen or pelvis. No urinary pathology is seen. Prostate gla nd is prominent, however. TECHNICAL DOCUMENTATION: JOB ID: [id number] Quality ID # [id number]: Final reports with documentation of one or more dose reduction techniques (e.g., Au tomated exposure control, adjustment of the mA and/or kV according to patient size, use of iterative reconstruction technique) 2010 [email or web address]- All Rights Reserved Reading location - IP/workstation name: [email or web address]
[2019-01-20] MEDS: NORMAL SALINE 1000 ML 1,000 ML IV PRN (19:40)
[2019-01-20] MEDS: HEPARIN SOD (PORCINE) 5,000 UNIT/ML 1 ML VIAL SUBCUT SCH (19:44)
[2019-01-20] MEDS: ATENOLOL 50 MG TABLET PO SCH (19:57)
[2019-01-20] MEDS: PANTOPRAZOLE SODIUM 20 MG TABLET.DR PO SCH (19:57)
[2019-01-20] MEDS: AMLODIPINE BESYLATE 10 MG TABLET PO SCH (19:57)
[2019-01-20] MEDS: CEFTRIAXONE 1 GM/D5W RTU 1 GM/50 ML RTUPB IV SCH (19:59)
[2019-01-20 20:12] LABS: CREATINE KINASE MB 6.87 ng/mL (<4.55); TROPONIN I 0.014 ng/mL
[2019-01-21] MEDS: NORMAL SALINE 1000 ML 1,000 ML IV PRN ×4 (03:18→23:14)
[2019-01-21] MEDS: HEPARIN SOD (PORCINE) 5,000 UNIT/ML 1 ML VIAL SUBCUT SCH ×3 (05:36→21:12)
[2019-01-21] MEDS: PANTOPRAZOLE SODIUM 20 MG TABLET.DR PO SCH (05:36)
[2019-01-21 06:12] LABS: HEMOGLOBIN 11.2 g/dL (13.5-17.0); MEAN CORPUSCULAR HEMOGLOBIN 22.8 pg (27.0-33.4); MEAN CORPUSCULAR HGB CONC 33.1 g/dL (32.0-36.0); MEAN CORPUSCULAR VOLUME 69 fl (80-97); PLATELET COUNT 142 10^3/uL (150-450); RED BLOOD COUNT 4.92 10^6/uL (4.35-5.55); WHITE BLOOD COUNT 8.3 10^3/uL (4.0-10.5)
[2019-01-21 06:24] LABS: ALBUMIN 3.2 g/dL (3.5-5.0); ALKALINE PHOSPHATASE 83 U/L (38-126); ANION GAP 16 (5-19); ASPARTATE AMINO TRANSFERASE 48 U/L (17-59); BILIRUBIN,DIRECT 0.4 mg/dL (0.0-0.4); BILIRUBIN,TOTAL 0.7 mg/dL (0.2-1.3); BLOOD UREA NITROGEN 89 mg/dL (7-20); CALCIUM 9.2 mg/dL (8.4-10.2); CARBON DIOXIDE 18 mmol/L (22-30); CHLORIDE 100 mmol/L (98-107); CREATINE KINASE 93 U/L (55-170); GLUCOSE 107 mg/dL (75-110); POTASSIUM 3.8 mmol/L (3.6-5.0); TOTAL PROTEIN 5.9 g/dL (6.3-8.2); TRIGLYCERIDES 454 mg/dL (<150)
[2019-01-21 06:35] LABS: DIRECT LDL 32 mg/dL (<100)
[2019-01-21 06:36] LABS: CREATINE KINASE MB 4.43 ng/mL (<4.55)
[2019-01-21 06:37] LABS: TROPONIN I < 0.012 ng/mL
[2019-01-21 06:50] LABS: ABSOLUTE LYMPHOCYTES# (MANUAL) 1.3 10^3/uL (0.5-4.7); ABSOLUTE MONOCYTES # (MANUAL) 1.1 10^3/uL (0.1-1.4); BASOPHILS % (MANUAL) 0 % (0-2); EOSINOPHILS % (MANUAL) 0 % (0-6); LYMPHOCYTES % (MANUAL) 15 % (13-45); MONOCYTES % (MANUAL) 13 % (3-13); SEGMENTED NEUTROPHILS % (MAN) 71 % (42-78); TOTAL CELLS COUNTED 100
[2019-01-21 06:51] LABS: ANISOCYTOSIS 1+; PLATELET COMMENT DECREASED; POIKILOCYTOSIS 1+; TARGET CELLS 1+; TOXIC VACUOLATION PRESENT
[2019-01-21 06:52] LABS: HYPOCHROMASIA SLIGHT
[2019-01-21] MEDS: CEFTRIAXONE 1 GM/D5W RTU 1 GM/50 ML RTUPB IV SCH (10:27)
[2019-01-21] MEDS: AMLODIPINE BESYLATE 10 MG TABLET PO SCH (11:38)
[2019-01-21] MEDS: ATENOLOL 50 MG TABLET PO SCH (11:39)
[2019-01-21] MEDS ORDERED: TAMSULOSIN HCL 0.4 MG CAP.SR.24H PO ONE (14:00)
--- NOTE | 2019-01-21 14:21 | PDOC PROGRESS REPORT ---
Subjective Progress Note for:: 01/21/19 Subjective:: Patient seen by the bedside, he was admitted yesterday, Reason For Visit: ACUTE KIDNEY INJURY DUE TO OBSTRUCTIVE UROPATHY, Physical Exam Vital Signs: Temp Pulse Resp BP Pulse Ox 98.5 F 62 16 106/56 L 100 01/21/19 12:28 01/21/19 12:28 01/21/19 07:55 01/21/19 12:28 01/21/19 12:28 Intake & Output 01/20/19 01/21/19 01/22/19 06:59 06:59 06:59 Intake Total 3668 1050 Output Total 2825 Balance 843 1050 Weight 106.1 kg General appearance: PRESENT: no acute distress Eye exam: PRESENT: PERRLA Cardiovascular exam: PRESENT: +S1, +S2 GI/Abdominal exam: PRESENT: soft Neurological exam: PRESENT: alert Results Laboratory Results: 01/21/19 05:27 01/21/19 05:27 01/20/19 01/20/19 01/20/19 13:35 13:35 18:45 WBC RBC Hgb Hct MCV MCH MCHC RDW Plt Count Seg Neutrophils % Sodium Potassium Chloride Carbon Dioxide Anion Gap BUN Creatinine Est GFR ( Amer) Glucose Calcium Phosphorus 5.6 H Magnesium 1.9 Total Bilirubin AST Alkaline Phosphatase Ammonia 16.5 Total Protein Albumin Triglycerides Cholesterol LDL Cholesterol Direct HDL Cholesterol Amylase 288 H Lipase 888.4 H Free T4 1.16 01/21/19 01/21/19 05:27 05:27 WBC 8.3 RBC 4.92 Hgb 11.2 L Hct 34.0 L MCV 69 L MCH 22.8 L MCHC 33.1 RDW 17.0 H Plt Count 142 L Seg Neutrophils % Not Reportable Sodium 133.7 L Potassium 3.8 Chloride 100 Carbon Dioxide 18 L Anion Gap 16 BUN 89 H Creatinine 3.89 H Est GFR ( Amer) 18 L Glucose 107 Calcium 9.2 Phosphorus Magnesium Total Bilirubin 0.7 AST 48 Alkaline Phosphatase 83 Ammonia Total Protein 5.9 L Albumin 3.2 L Triglycerides 454 H Cholesterol 193.80 LDL Cholesterol Direct 32 HDL Cholesterol 23 L Amylase Lipase Free T4 01/20/19 01/20/19 01/20/19 13:35 13:35 19:39 Creatine Kinase 230 H 159 CK-MB (CK-2) 9.04 H Troponin I < 0.012 01/20/19 01/21/19 01/21/19 19:39 05:27 05:27 Creatine Kinase 93 CK-MB (CK-2) 6.87 H 4.43 Troponin I 0.014 < 0.012 Impressions: Abdomen CT 01/20/19 00:00 IMPRESSION: No acute finding in the abdomen or pelvis. No urinary pathology is seen. Prostate gland is prominent, however. Acute Abdomen Series 01/20/19 12:36 IMPRESSION: NO RADIOGRAPHIC EVIDENCE FOR ACUTE ABDOMINAL DISEASE. Assessment & Plan - Diagnosis (1) Acute kidney injury Is this a current diagnosis for this admission?: Yes Plan: The serum creatinine increased from 1.66 to 7.81 in the last 2 days suggesting acute kidney failure, this is most likely due to a combination of factors including the use of ibuprofen, antibiotic, that could also be a component of hemodynamic instability with mild ATN, patient will be vigorously hydrated with fluid, we will continue close monitoring kidney function, the kidney function is improving with hydration (2) BPH (benign prostatic hyperplasia) Qualifiers: Lower urinary tract symptom presence: symptoms present Lower urinary tract symptom detail: urinary frequency Qualified Code(s): N40.1 - Benign prostatic hyperplasia with lower urinary tract symptoms; R35.0 - Frequency of micturition Is this a current diagnosis for this admission?: Yes Plan: Continue tamsulosin and finasteride (3) Urinary tract infection Qualifiers: Urinary tract infection type: site unspecified Hematuria presence: without hematuria Qualified Code(s): N39.0 - Urinary tract infection, site not specified Is this a current diagnosis for this admission?: Yes Plan: Continue IV antibiotic
[2019-01-21] MEDS: FINASTERIDE 5 MG TABLET PO SCH (14:25)
[2019-01-22 04:43] LABS: HEMATOCRIT 30.7 % (37.9-51.0); HEMOGLOBIN 10.3 g/dL (13.5-17.0); MEAN CORPUSCULAR HEMOGLOBIN 23.2 pg (27.0-33.4); MEAN CORPUSCULAR HGB CONC 33.4 g/dL (32.0-36.0); MEAN CORPUSCULAR VOLUME 69 fl (80-97); PLATELET COUNT 184 10^3/uL (150-450); RED BLOOD COUNT 4.43 10^6/uL (4.35-5.55); RED CELL DISTRIBUTION WIDTH 16.7 % (11.5-14.0); WHITE BLOOD COUNT 8.1 10^3/uL (4.0-10.5)
[2019-01-22 04:56] LABS: ALBUMIN 2.9 g/dL (3.5-5.0); ALKALINE PHOSPHATASE 127 U/L (38-126); ANION GAP 12 (5-19); ASPARTATE AMINO TRANSFERASE 86 U/L (17-59); BILIRUBIN,DIRECT 0.3 mg/dL (0.0-0.4); BILIRUBIN,TOTAL 0.6 mg/dL (0.2-1.3); CALCIUM 8.7 mg/dL (8.4-10.2); CARBON DIOXIDE 20 mmol/L (22-30); CHLORIDE 104 mmol/L (98-107); GLUCOSE 114 mg/dL (75-110); POTASSIUM 3.8 mmol/L (3.6-5.0); TOTAL PROTEIN 5.4 g/dL (6.3-8.2)
[2019-01-22 05:03] LABS: ABSOLUTE LYMPHOCYTES# (MANUAL) 1.8 10^3/uL (0.5-4.7); ABSOLUTE MONOCYTES # (MANUAL) 1.1 10^3/uL (0.1-1.4); ANISOCYTOSIS 1+; BASOPHILS % (MANUAL) 0 % (0-2); EOSINOPHILS % (MANUAL) 0 % (0-6); LYMPHOCYTES % (MANUAL) 22 % (13-45); MONOCYTES % (MANUAL) 13 % (3-13); PLATELET COMMENT ADEQUATE; POLYCHROMASIA 1+; SEGMENTED NEUTROPHILS % (MAN) 65 % (42-78); TOTAL CELLS COUNTED 100
[2019-01-22 05:07] LABS: BLOOD UREA NITROGEN 68 mg/dL (7-20)
[2019-01-22] MEDS: PANTOPRAZOLE SODIUM 20 MG TABLET.DR PO SCH (05:26)
[2019-01-22] MEDS: HEPARIN SOD (PORCINE) 5,000 UNIT/ML 1 ML VIAL SUBCUT SCH ×3 (05:27→21:45)
[2019-01-22] MEDS: ATENOLOL 50 MG TABLET PO SCH (09:29)
[2019-01-22] MEDS: FINASTERIDE 5 MG TABLET PO SCH (09:29)
[2019-01-22] MEDS: AMLODIPINE BESYLATE 10 MG TABLET PO SCH (09:30)
[2019-01-22] MEDS: CEFTRIAXONE 1 GM/D5W RTU 1 GM/50 ML RTUPB IV SCH (09:31)
[2019-01-22] MEDS: NORMAL SALINE 1000 ML 1,000 ML IV PRN ×2 (09:32→18:34)
--- NOTE | 2019-01-22 13:09 | PDOC PROGRESS REPORT ---
Subjective Progress Note for:: 01/22/19 Subjective:: Patient experience recurrent urinary retention after removal of his Mathew catheter with need for reinsertion. He is currently doing fine. No abdominal pain, nausea, or vomiting. No hematuria. No chest pain or difficulty with breathing. No fever or chills. Reason For Visit: ACUTE KIDNEY INJURY DUE TO OBSTRUCTIVE UROPATHY, Physical Exam Vital Signs: Temp Pulse Resp BP Pulse Ox 99.1 F 71 16 127/64 H 96 01/22/19 09:00 01/22/19 09:00 01/22/19 09:00 01/22/19 09:00 01/22/19 09:00 Intake & Output 01/21/19 01/22/19 01/23/19 06:59 06:59 06:59 Intake Total 3668 6847 Output Total 2825 3100 Balance 843 3747 Weight 106.1 kg 103.6 kg General appearance: PRESENT: no acute distress, obese Head exam: PRESENT: atraumatic, normocephalic Eye exam: PRESENT: conjunctiva pink. ABSENT: scleral icterus Ear exam: PRESENT: normal external ear exam Mouth exam: PRESENT: moist Respiratory exam: PRESENT: clear to auscultation [place] Cardiovascular exam: PRESENT: RRR. ABSENT: diastolic murmur, rubs, systolic murmur Vascular exam: ABSENT: pallor GI/Abdominal exam: PRESENT: normal bowel sounds, soft. ABSENT: distended, guarding, mass, organolmegaly, rebound, tenderness Rectal exam: PRESENT: deferred Gentrourinary exam: PRESENT: indwelling catheter Extremities exam: ABSENT: pedal edema Neurological exam: PRESENT: alert, awake, oriented to person, oriented to place, oriented to time, oriented to situation, CN II-XII grossly intact. ABSENT: motor sensory deficit Psychiatric exam: PRESENT: appropriate affect, normal mood. ABSENT: homicidal ideation, suicidal ideation Skin exam: PRESENT: dry, intact, warm. ABSENT: cyanosis, rash Results Laboratory Results: 01/22/19 03:50 01/22/19 03:50 01/22/19 01/22/19 03:50 03:50 WBC 8.1 RBC 4.43 Hgb 10.3 L Hct 30.7 L MCV 69 L MCH 23.2 L MCHC 33.4 RDW 16.7 H Plt Count 184 Seg Neutrophils % Not Reportable Sodium 135.6 L Potassium 3.8 Chloride 104 Carbon Dioxide 20 L Anion Gap 12 BUN 68 H D Creatinine 2.41 H Est GFR ( Amer) 32 L Glucose 114 H Calcium 8.7 Total Bilirubin 0.6 AST 86 H Alkaline Phosphatase 127 H Total Protein 5.4 L Albumin 2.9 L 01/20/19 13:17 Clean Catch Midstream Urine Culture - Final NO GROWTH 2 DAYS 01/20/19 01/20/19 01/20/19 13:35 13:35 19:39 Creatine Kinase 230 H 159 CK-MB (CK-2) 9.04 H Troponin I < 0.012 01/20/19 01/21/19 01/21/19 19:39 05:27 05:27 Creatine Kinase 93 CK-MB (CK-2) 6.87 H 4.43 Troponin I 0.014 < 0.012 Impressions: Abdomen CT 01/20/19 00:00 IMPRESSION: No acute finding in the abdomen or pelvis. No urinary pathology is seen. Prostate gland is prominent, however. Acute Abdomen Series 01/20/19 12:36 IMPRESSION: NO RADIOGRAPHIC EVIDENCE FOR ACUTE ABDOMINAL DISEASE. Assessment & Plan - Diagnosis (1) Acute renal failure Qualifiers: Acute renal failure type: unspecified Qualified Code(s): N17.9 - Acute kidney failure, unspecified Is this a current diagnosis for this admission?: Yes Plan: Improving with resolution of his obstruction and hydration. Obtain BMP in AM. (2) BPH (benign prostatic hyperplasia) Qualifiers: Lower urinary tract symptom presence: symptoms present Lower urinary tract symptom detail: urinary frequency Qualified Code(s): N40.1 - Benign prostatic hyperplasia with lower urinary tract symptoms; R35.0 - Frequency of micturition Is this a current diagnosis for this admission?: Yes Plan: Maintain on indwelling Mathew catheter. Consider Urolift intervention upon discharge. I discussed the essentials of the procedure with the patient during this bedside visit. Continue Finasteride and Tamsulosin therapy. (3) Obstructive uropathy Is this a current diagnosis for this admission?: Yes Plan: Due to BPH with LUTS. Currently on indwelling Mathew catheter management. - Time Time Spent with patient: 25-34 minutes Medications reviewed and adjusted accordingly: Yes Anticipated discharge: Home with Homehealth Within: Other - Inpatient Certification Based on my medical assessment, after consideration of the patient's comorbidities, presenting symptoms, or acuity I expect that the services needed warrant INPATIENT care.: Yes I certify that my determination is in accordance with my understanding of Medicare's requirements for reasonable and necessary INPATIENT services [42 CFR 412.3e].: Yes Medical Necessity: Significant Comorbidiites Make Outpatient Treatment Too Risky, Need Close Monitoring Due to Risk of Patient Decompensation, Need For IV Fluids, Need For Continuous Telemetry Monitoring, Need for IV Antibiotics, Risk of Complication if Not Cared For in Hospital, Risk of Diagnosis Which Will Require Inpatient Eval/Care/Monitoring Post Hospital Care: D/C [place] Helper Documentation - Plan Summary Plan Summary: See covering attending physician orders for details about care plan.
[2019-01-22] MEDS: TAMSULOSIN HCL 0.4 MG CAP.SR.24H PO SCH (18:34)
[2019-01-23] MEDS: HEPARIN SOD (PORCINE) 5,000 UNIT/ML 1 ML VIAL SUBCUT SCH ×3 (05:47→21:37)
[2019-01-23] MEDS: PANTOPRAZOLE SODIUM 20 MG TABLET.DR PO SCH (05:47)
[2019-01-23 07:09] LABS: HEMOGLOBIN 10.5 g/dL (13.5-17.0); MEAN CORPUSCULAR HEMOGLOBIN 22.8 pg (27.0-33.4); MEAN CORPUSCULAR HGB CONC 32.7 g/dL (32.0-36.0); MEAN CORPUSCULAR VOLUME 70 fl (80-97); PLATELET COUNT 257 10^3/uL (150-450); RED BLOOD COUNT 4.59 10^6/uL (4.35-5.55); RED CELL DISTRIBUTION WIDTH 16.3 % (11.5-14.0); WHITE BLOOD COUNT 9.7 10^3/uL (4.0-10.5)
[2019-01-23 07:14] LABS: ALBUMIN 3.1 g/dL (3.5-5.0); ALKALINE PHOSPHATASE 215 U/L (38-126); ANION GAP 11 (5-19); ASPARTATE AMINO TRANSFERASE 254 U/L (17-59); BILIRUBIN,DIRECT 0.5 mg/dL (0.0-0.4); BILIRUBIN,TOTAL 0.9 mg/dL (0.2-1.3); BLOOD UREA NITROGEN 42 mg/dL (7-20); CALCIUM 9.3 mg/dL (8.4-10.2); CARBON DIOXIDE 20 mmol/L (22-30); CHLORIDE 107 mmol/L (98-107); GLUCOSE 114 mg/dL (75-110); POTASSIUM 3.9 mmol/L (3.6-5.0); TOTAL PROTEIN 5.9 g/dL (6.3-8.2)
[2019-01-23 07:41] LABS: ABSOLUTE LYMPHOCYTES# (MANUAL) 1.9 10^3/uL (0.5-4.7); ABSOLUTE MONOCYTES # (MANUAL) 0.9 10^3/uL (0.1-1.4); BASOPHILS % (MANUAL) 0 % (0-2); EOSINOPHILS % (MANUAL) 1 % (0-6); LYMPHOCYTES % (MANUAL) 20 % (13-45); MONOCYTES % (MANUAL) 9 % (3-13); SEGMENTED NEUTROPHILS % (MAN) 70 % (42-78); TOTAL CELLS COUNTED 100
[2019-01-23 07:43] LABS: ANISOCYTOSIS 1+; HYPOCHROMASIA 2+; OVALOCYTES 1+; PLATELET COMMENT ADEQUATE; POIKILOCYTOSIS 3+; TARGET CELLS 2+
[2019-01-23] MEDS: FINASTERIDE 5 MG TABLET PO SCH (09:43)
[2019-01-23] MEDS: ATENOLOL 50 MG TABLET PO SCH (09:43)
[2019-01-23] MEDS: AMLODIPINE BESYLATE 10 MG TABLET PO SCH (09:43)
[2019-01-23] MEDS: CEFTRIAXONE 1 GM/D5W RTU 1 GM/50 ML RTUPB IV SCH (09:47)
[2019-01-23] MEDS: NORMAL SALINE 1000 ML 1,000 ML IV PRN ×3 (09:50→21:37)
--- NOTE | 2019-01-23 10:51 | PDOC PROGRESS REPORT ---
Subjective Progress Note for:: 01/23/19 Subjective:: Patient denied any chest pain or difficulty with breathing. No fever or chills. No abdominal pain, nausea, or vomiting. Retained indwelling Mathew catheter. No hematuria. Reason For Visit: ACUTE KIDNEY INJURY DUE TO OBSTRUCTIVE UROPATHY, Physical Exam Vital Signs: Temp Pulse Resp BP Pulse Ox 99.7 F 73 16 142/65 H 97 01/23/19 07:26 01/23/19 07:26 01/23/19 07:26 01/23/19 07:26 01/23/19 07:26 Intake & Output 01/22/19 01/23/19 01/24/19 06:59 06:59 06:59 Intake Total 6847 3510 Output Total 3100 3550 Balance 3747 -40 Weight 103.6 kg 104 kg Physical Exam: General appearance: PRESENT: no acute distress, obese Head exam: PRESENT: atraumatic, normocephalic Eye exam: PRESENT: conjunctiva pink. ABSENT: pallor, scleral icterus Ear exam: PRESENT: normal external ear exam Mouth exam: PRESENT: moist Respiratory exam: PRESENT: clear to auscultation [place] Cardiovascular exam: PRESENT: RRR. ABSENT: diastolic murmur, rubs, systolic murmur GI/Abdominal exam: PRESENT: normal bowel sounds, soft. ABSENT: distended, guarding, mass, organomegaly, rebound, tenderness Rectal exam: PRESENT: deferred Gentrourinary exam: PRESENT: indwelling catheter Extremities exam: ABSENT: pedal edema Neurological exam: PRESENT: alert, awake, oriented to person, oriented to place, oriented to time, oriented to situation, CN II-XII grossly intact. ABSENT: motor sensory deficit Psychiatric exam: PRESENT: appropriate affect, normal mood. ABSENT: homicidal ideation, suicidal ideation Skin exam: PRESENT: dry, intact, warm. ABSENT: cyanosis, rash Results Laboratory Results: 01/23/19 06:20 01/23/19 06:20 01/23/19 01/23/19 06:20 06:20 WBC 9.7 RBC 4.59 Hgb 10.5 L Hct 32.0 L MCV 70 L MCH 22.8 L MCHC 32.7 RDW 16.3 H Plt Count 257 Seg Neutrophils % Not Reportable Sodium 137.9 Potassium 3.9 Chloride 107 Carbon Dioxide 20 L Anion Gap 11 BUN 42 H Creatinine 1.50 H Est GFR ( Amer) 55 L Glucose 114 H Calcium 9.3 Total Bilirubin 0.9 AST 254 H Alkaline Phosphatase 215 H Total Protein 5.9 L Albumin 3.1 L 01/20/19 13:17 Clean Catch Midstream Urine Culture - Final NO GROWTH 2 DAYS 01/20/19 01/20/19 01/20/19 13:35 13:35 19:39 Creatine Kinase 230 H 159 CK-MB (CK-2) 9.04 H Troponin I < 0.012 01/20/19 01/21/19 01/21/19 19:39 05:27 05:27 Creatine Kinase 93 CK-MB (CK-2) 6.87 H 4.43 Troponin I 0.014 < 0.012 Impressions: Abdomen CT 01/20/19 00:00 IMPRESSION: No acute finding in the abdomen or pelvis. No urinary pathology is seen. Prostate gland is prominent, however. Acute Abdomen Series 01/20/19 12:36 IMPRESSION: NO RADIOGRAPHIC EVIDENCE FOR ACUTE ABDOMINAL DISEASE. Assessment & Plan - Diagnosis (1) Acute renal failure Qualifiers: Acute renal failure type: unspecified Qualified Code(s): N17.9 - Acute kidney failure, unspecified Is this a current diagnosis for this admission?: Yes (2) BPH (benign prostatic hyperplasia) Qualifiers: Lower urinary tract symptom presence: symptoms present Lower urinary tract symptom detail: urinary frequency Qualified Code(s): N40.1 - Benign prostatic hyperplasia with lower urinary tract symptoms; R35.0 - Frequency of micturition Is this a current diagnosis for this admission?: Yes (3) Obstructive uropathy Is this a current diagnosis for this admission?: Yes - Time Time Spent with patient: 25-34 minutes Medications reviewed and adjusted accordingly: Yes Anticipated discharge: Home with Homehealth Within: Other - Inpatient Certification Based on my medical assessment, after consideration of the patient's comorbidities, presenting symptoms, or acuity I expect that the services needed warrant INPATIENT care.: Yes I certify that my determination is in accordance with my understanding of Medicare's requirements for reasonable and necessary INPATIENT services [42 CFR 412.3e].: Yes Medical Necessity: Significant Comorbidiites Make Outpatient Treatment Too Risky, Need Close Monitoring Due to Risk of Patient Decompensation, Need For Continuous Telemetry Monitoring, Need for IV Antibiotics, Risk of Complication if Not Cared For in Hospital, Risk of Diagnosis Which Will Require Inpatient Eval/Care/Monitoring Post Hospital Care: D/C Fish Smoker Documentation - Plan Summary Plan Summary: Continue current medication management with improving renal indices.
[2019-01-23] MEDS: TAMSULOSIN HCL 0.4 MG CAP.SR.24H PO SCH (17:07)
[2019-01-24] MEDS: PANTOPRAZOLE SODIUM 20 MG TABLET.DR PO SCH (05:31)
[2019-01-24] MEDS: HEPARIN SOD (PORCINE) 5,000 UNIT/ML 1 ML VIAL SUBCUT SCH ×3 (05:31→22:45)
[2019-01-24] MEDS: NORMAL SALINE 1000 ML 1,000 ML IV PRN ×2 (05:37→13:08)
[2019-01-24 07:08] LABS: PROSTATE SPECIFIC ANTIGEN 40.4 ng/mL (0.0-4.0); PSA FREE 7.66 ng/mL
[2019-01-24] MEDS: ATENOLOL 50 MG TABLET PO SCH (10:12)
[2019-01-24] MEDS: AMLODIPINE BESYLATE 10 MG TABLET PO SCH (10:12)
[2019-01-24 10:13] LABS: ABSOLUTE EOSINOPHILS # (AUTO) 0.3 10^3/uL (0.0-0.6); ABSOLUTE LYMPHOCYTES (AUTO) 1.5 10^3/uL (0.5-4.7); ABSOLUTE MONOCYTES (AUTO) 0.8 10^3/uL (0.1-1.4); ABSOLUTE NEUT (AUTO) 8.5 10^3/uL (1.7-8.2); BASOPHILS % (AUTO) 0.4 % (0-2); EOSINOPHILS % (AUTO) 2.3 % (0-6); HEMATOCRIT 29.9 % (37.9-51.0); HEMOGLOBIN 9.8 g/dL (13.5-17.0); LYMPHOCYTES % (AUTO) 13.2 % (13-45); MEAN CORPUSCULAR HEMOGLOBIN 22.9 pg (27.0-33.4); MEAN CORPUSCULAR HGB CONC 32.6 g/dL (32.0-36.0); MEAN CORPUSCULAR VOLUME 70 fl (80-97); MONOCYTES % (AUTO) 6.9 % (3-13); PLATELET COUNT 304 10^3/uL (150-450); RED BLOOD COUNT 4.27 10^6/uL (4.35-5.55); RED CELL DISTRIBUTION WIDTH 16.5 % (11.5-14.0); SEGMENTED NEUTROPHILS % (AUTO) 77.2 % (42-78); TOTAL CELLS COUNTED % (AUTO) 100 %
[2019-01-24] MEDS: FINASTERIDE 5 MG TABLET PO SCH (10:13)
[2019-01-24] MEDS: CEFTRIAXONE 1 GM/D5W RTU 1 GM/50 ML RTUPB IV SCH (10:14)
[2019-01-24 10:30] LABS: ALBUMIN 2.8 g/dL (3.5-5.0); ALKALINE PHOSPHATASE 177 U/L (38-126); ANION GAP 9 (5-19); ASPARTATE AMINO TRANSFERASE 109 U/L (17-59); BILIRUBIN,DIRECT 0.3 mg/dL (0.0-0.4); BILIRUBIN,TOTAL 0.7 mg/dL (0.2-1.3); BLOOD UREA NITROGEN 26 mg/dL (7-20); CARBON DIOXIDE 22 mmol/L (22-30); CHLORIDE 106 mmol/L (98-107); GLUCOSE 129 mg/dL (75-110); POTASSIUM 3.8 mmol/L (3.6-5.0); TOTAL PROTEIN 5.5 g/dL (6.3-8.2)
[2019-01-24] MEDS: TAMSULOSIN HCL 0.4 MG CAP.SR.24H PO SCH (18:17)
--- NOTE | 2019-01-24 22:26 | PDOC DISCHARGE SUMMARY ---
General - Admit/Disc Date/PCP Admission Date/Primary Care Provider: 01/20/19 16:52 YUVAL PENNINGTON MD Discharge Date: 01/24/19 - Discharge Diagnosis (1) Acute kidney injury Is this a current diagnosis for this admission?: Yes (2) BPH (benign prostatic hyperplasia) Is this a current diagnosis for this admission?: Yes (3) Urinary tract infection Is this a current diagnosis for this admission?: Yes - Additional Information Discharge Diet: As Tolerated, Regular Discharge Activity: Activity As Tolerated Prescriptions: Ciprofloxacin HCl [Cipro 500 mg Tablet] 500 mg PO BID #20 tablet Tamsulosin HCl [Flomax 0.4 mg Cap.sr] 0.4 mg PO PCSUPPER #90 cap.sr.24h Finasteride [Proscar 5 mg Tablet] 5 mg PO DAILY #90 tablet Home Medications: Allopurinol [Zyloprim] 300 mg PO DAILY 11/10/17 Amlodipine Besylate 10 mg PO DAILY 11/10/17 Atenolol [Tenormin] 50 mg PO DAILY 11/10/17 Hydrochlorothiazide 25 mg PO QAM 11/10/17 Olmesartan Medoxomil 40 mg PO DAILY 01/20/19 Omeprazole 20 mg PO DAILY 01/20/19 Ciprofloxacin HCl [Cipro 500 mg Tablet] 500 mg PO BID #20 tablet 01/24/19 Finasteride [Proscar 5 mg Tablet] 5 mg PO DAILY #90 tablet 01/24/19 Tamsulosin HCl [Flomax 0.4 mg Cap.sr] 0.4 mg PO PCSUPPER #90 cap.sr.24h 01/24/19 History of Present Illness History of Present Illness: MEHRAN MUSE is a 73 year old male he came initially to the emergency room on 01/18/2019 for evaluation of nausea vomiting, excessive sweating, decreased appetite, abdominal discomfort before this ER visit he was in the urgent care the day before for evaluation of urinary symptoms he was diagnosed with UTI, he was prescribed Cipro. He also complained of abdominal pain at the time in the emergency room he was evaluated the serum creatinine was 1.6, urinalysis was grossly abnormal with pyuria, positive leukocyte esterase, positive urine nitrite bacteriuria, he also had a CAT scan of the abdomen and pelvis without contrast, the CAT scan demonstrated multiple vague low-density lesions in the anterior liver measuring up to 2.1 cm, this likely represents cyst according to the report. The kidneys were mildly atrophic he was discharged home from the emergency room, he was also prescribed ibuprofen 600 mg p.o. every 6 hours for pain control. He return to the emergency room on 01/20/2019 with complaint of abdominal fullness for the last few days, constipation. He had blood work done in the ER on this visit that demonstrated, sodium 128, creatinine 6.15, grossly abnormal dipstick urinalysis with blood in the urine, positive leukocyte esterase, protein,, it was felt that patient probably have obstructive uropathy I was not convinced of the diagnosis of obstructive uropathy because the last CAT scan that was done did not show any hydronephrosis, it demonstrated atrophic kidneys and mild azotemia. I ordered a repeat CT scan of the abdomen and pelvis without contrast again there was no hydronephrosis or hydroureter to suggest obstructive uropathy, he had a Mathew catheter inserted in the emergency room. Clearly he has acute kidney injury Hospital Course Hospital Course: Patient was admitted for the management of acute kidney injury, urinary tract infection, enlarged prostate gland. On admission the serum creatinine was 7, this was felt to be prerenal azotemia. The CAT scan of the abdomen and pelvis did not demonstrate any hydronephrosis, he was found to have an enlarged prostate gland, the PSA was 40. He was treated with IV fluid, IV antibiotic empirically, he was also started on tamsulosin and finasteride for the enlarged prostate gland. The ureteral catheter was discontinued patient could not evacua te his urinary bladder so the catheter was reinserted. He will be discharged home with indwelling catheter, he will follow with me outpatient he will be referred to urology for possible UroLift device or other devices that may be applicable for his care Physical Exam Vital Signs: Temp Pulse Resp BP Pulse Ox 98.3 F 72 16 139/73 H 100 01/24/19 20:23 01/24/19 20:23 01/24/19 20:23 01/24/19 20:23 01/24/19 20:23 Intake & Output 01/23/19 01/24/19 01/25/19 06:59 06:59 06:59 Intake Total 3510 0377 3344 Output Total 4176 4326 1280 Balance -40 -360 598 Weight 104 kg 109.1 kg General appearance: PRESENT: no acute distress Head exam: PRESENT: atraumatic, normocephalic Eye exam: PRESENT: conjunctiva pink, EOMI, PERRLA Ear exam: PRESENT: normal external ear exam Mouth exam: PRESENT: moist, tongue midline Neck exam: PRESENT: full ROM Respiratory exam: PRESENT: clear to auscultation [place] Cardiovascular exam: PRESENT: RRR, +S1, +S2 Pulses: PRESENT: normal dorsalis pedis pul, +2 pedal pulses bilateral Vascular exam: PRESENT: normal capillary refill GI/Abdominal exam: PRESENT: normal bowel sounds, soft Rectal exam: PRESENT: deferred Neurological exam: PRESENT: alert, awake, oriented to person, oriented to place, oriented to time, oriented to situation, CN II-XII grossly intact Psychiatric exam: PRESENT: appropriate affect, normal mood Skin exam: PRESENT: dry, intact, warm. ABSENT: cyanosis, rash Results Laboratory Results: 01/24/19 09:21 01/24/19 09:21 01/20/19 01/24/19 01/24/19 13:35 09:21 09:21 WBC 11.0 H RBC 4.27 L Hgb 9.8 L Hct 29.9 L MCV 70 L MCH 22.9 L MCHC 32.6 RDW 16.5 H Plt Count 304 Seg Neutrophils % 77.2 Sodium 137.0 Potassium 3.8 Chloride 106 Carbon Dioxide 22 Anion Gap 9 BUN 26 H Creatinine 1.21 Est GFR ( Amer) > 60 Glucose 129 H Calcium 9.0 Total Bilirubin 0.7 AST 109 H Alkaline Phosphatase 177 H Total Protein 5.5 L Albumin 2.8 L Prostate Specific Ag 40.4 H Free PSA 7.66 % Free PSA 19.0 01/20/19 01/20/19 01/20/19 13:35 13:35 19:39 Creatine Kinase 230 H 159 CK-MB (CK-2) 9.04 H Troponin I < 0.012 01/20/19 01/21/19 01/21/19 19:39 05:27 05:27 Creatine Kinase 93 CK-MB (CK-2) 6.87 H 4.43 Troponin I 0.014 < 0.012 Impressions: Abdomen CT 01/20/19 00:00 IMPRESSION: No acute finding in the abdomen or pelvis. No urinary pathology is seen. Prostate gland is prominent, however. Acute Abdomen Series 01/20/19 12:36 IMPRESSION: NO RADIOGRAPHIC EVIDENCE FOR ACUTE ABDOMINAL DISEASE. Qualifiers - * PATIENT BEING DISCHARGED WITH ANY OF THE FOLLOWING DIAGNOSIS: No VTE patient discharged on overlapping Therapy?: No Reason(s) for not prescribing Overlap Therapy:: Not indicated Stroke Pt being discharged on Anti-thrombolytic therapy?: No Reason(s) for not prescribing Anti-thrombolytic therapy:: Not indicated Stroke Pt being discharged on Anti-coagulation therapy?: No Reason(s) for not prescribing Anti-coagulation therapy:: Not indicated Stroke Pt being discharged on Statins?: No Reason(s) for not prescribing Statins therapy:: Not indicated [place] Pt being discharged on Aspirin therapy?: No Reason(s) for not prescribing Aspirin therapy:: Not indicated [place] Pt being discharged on Statins?: No Reason(s) for not prescribing Statin therapy:: Not indicated [place] Pt discharged ACEI/ARBS?: No Reason(s) for not prescribing ACEI/ARBS:: Not indicated Acute Heart Failure - Is this a Heart Failure Patient?: No Follow-up Appointment scheduled within 7 days?: Yes
[2019-01-25] MEDS: HEPARIN SOD (PORCINE) 5,000 UNIT/ML 1 ML VIAL SUBCUT SCH (06:14)
[2019-01-25] MEDS: PANTOPRAZOLE SODIUM 20 MG TABLET.DR PO SCH (06:14)
[2019-01-25] MEDS: NORMAL SALINE 1000 ML 1,000 ML IV PRN (06:18)
[2019-01-25 08:28] VITALS: BP 142/67
[2019-01-25] MEDS: FINASTERIDE 5 MG TABLET PO SCH (09:55)
[2019-01-25] MEDS: AMLODIPINE BESYLATE 10 MG TABLET PO SCH (09:55)
[2019-01-25] MEDS: ATENOLOL 50 MG TABLET PO SCH (09:55)
[2019-01-25] MEDS: CEFTRIAXONE 1 GM/D5W RTU 1 GM/50 ML RTUPB IV SCH (09:56)
== END 2019-01-25 13:00 | disposition home health service (06) | DRG 683 ==
LOC: ER 12:31 → EH 16:52 → 4S 18:34
PROVIDERS: ADMIT Internal Medicine; ATTEND Internal Medicine
DX: N17.9 Acute kidney failure, unspecified (principal); N39.0 Urinary tract infection, site not specified; N40.1 Benign prostatic hyperplasia with lower urinary tract symptoms; K76.89 Other specified diseases of liver; N26.1 Atrophy of kidney (terminal); I10 Essential (primary) hypertension; M10.9 Gout, unspecified; K59.00 Constipation, unspecified; R35.0 Frequency of micturition; T39.315A Adverse effect of propionic acid derivatives, initial encounter; T36.95XA Adverse effect of unspecified systemic antibiotic, initial encounter; E66.9 Obesity, unspecified; Z79.899 Other long term (current) drug therapy; Z87.891 Personal history of nicotine dependence
CPT/HCPCS: 36415; 74022; 74150; 74176; 80048; 80053; 80061; 80076; 80307; 81001; 82140; 82150; 82550; 82553; 83036; 83690; 83735; 84100; 84154; 84439; 84484; 85025; 85610; 85730; 87040; 87086; 96360; 96361; 96365; 99283; 99291; C1758; J0696; J1644; J3490; J7030